=== PATIENT | female | born 1985 | race Caucasian/White ===

== ENCOUNTER 2016-04-16 15:06 | Emergency (ER) | payer OTHER ==
--- NOTE | 2016-04-16 15:33 | EDDOCDS ---
Physician Documentation [facility] Name: Irena Del Cid Age: 30 yrs Sex: Female : 1985 Arrival Date: 04/16/2016 Time: 15:06 Bed TR8 Private MD: Jose Roberto Steiner Disposition: 04/16/16 15:23 Discharged to Home/Self Care. Impression: Chalazion left lower eyelid. - Condition is Stable. - Discharge Instructions: Chalazion. - Prescriptions for Erythromycin 5 mg/gram (0.5 %) Ophthalmic Ointment - apply 1 centimeter by OPHTHALMIC route 2-3 times daily for 7 days; 1 tube. - Medication Reconciliation form. - Follow up: Audi Phillips; When: Call to arrange an appointment; Reason: Wound/Symptom Recheck, Recheck today's complaints, Continuance of care. - Problem is chronic. - Symptoms are unchanged. - Notes: Follow up with the eye doctor as discussed. Historical: - Allergies: no known allergies; - Home Meds: 1. none - PMHx: none; - PSHx: none; - Social history: Smoking status: Patient uses tobacco products, current some day smoker. No barriers to communication noted, The patient speaks fluent Ivorian, Speaks appropriately for age. - Family history: No immediate family members are acutely ill. - : The pt / caregiver states he / she is not on anticoagulants. Home medication list is obtained from the patient. - Exposure Risk Screening:: None identified. 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 7 in. (170.18 cm); Pain 5/10; 15:08 Body Mass Index 22.55 (65.32 kg, 170.18 cm) dem1 MDM: 15:31 Financial registration complete. lg Signatures: Ame Nieves, RN RN [facility] Mirlande Levin, Reg Reg lg Desmond Simpson, PA-C PA-C cc10 Brandon Rios RN RN mb9 MTDD
--- NOTE | 2016-04-16 15:33 | EDDOCDS ---
Nurse's Notes [facility] Name: Irena Del Cid Age: 30 yrs Sex: Female : 1985 Arrival Date: 04/16/2016 Time: 15:06 Bed TR8 Private MD: Jose Roberto Steiner Diagnosis: Chalazion left lower eyelid Presentation: 04/16 15:10 Presenting complaint: Patient states: left stye on lower lid for a month. last couple srm of days its gotten bigger. also a bump that she can feel when touches upper right eye lid. Mechanism of Injury: No Mechanism of Injury. The patient denies any loss of vision. Adult Sepsis Screening: The patient does not have new or worsening altered mentation. Patient's respiratory rate is less than 22. Systolic blood pressure is greater than 100. Patient has a qSOFA score of 0- Negative Sepsis Screen. Suicide/Homicide risk assessment- the patient denies having any suicidal and/or homicidal ideations and does not present with any other emotional, behavioral or mental health complaints. Status: Patient is not a emergency medical service coordinator or dependent. Transition of care: patient was not received from another setting of care. 15:10 Acuity: JESSA Level 4 srm 15:10 Method Of Arrival: Walkin/Carried/Asstd srm 15:12 Presenting complaint: Patient states: drainage from left eye last 2 days. srm Triage Assessment: 15:11 General: Appears in no apparent distress, Behavior is appropriate for age, cooperative. srm Pain: Pain currently is 5 out of 10 on a pain scale. HIV screening NA for this visit Offered previously. EENT: Reports drainage from eye in am for past 2 days. 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 none - PMHx: none; - PSHx: none; - Social history: Smoking status: Patient uses tobacco products, current some day smoker. No barriers to communication noted, The patient speaks fluent Tajik, Speaks appropriately for age. - Family history: No immediate family members are acutely ill. - : The pt / caregiver states he / she is not on anticoagulants. Home medication list is obtained from the patient. - Exposure Risk Screening:: None identified. Screenin:29 Screening information is obtained from the patient. Fall risk: No risks identified. mb9 Assistance ADL's: requires no assistance with activities of daily living. Abuse/DV Screen: The patient / caregiver reports he/she is: not in a situation that causes fear, pain or injury. Nutritional screening: No deficits noted. Advance Directives: There is no active DNR order. home support is adequate. Assessment: 15:29 General: Appears in no apparent distress, Behavior is appropriate for age, cooperative. mb9 EENT: Eyes Sclera/Cornea. Vital Signs: 15:08 BP 127 / 76; Pulse 101; Resp 18; Temp 97.4(O); Pulse Ox 98% on R/A; Weight 65.32 kg dem1 (M); Height 5 ft. 7 in. (170.18 cm); Pain 5/10; 15:08 Body Mass Index 22.55 (65.32 kg, 170.18 cm) [facility] Vitals: 15:08 Log In Time: April 16, 2016 at 15:05. [facility] ED Course: 15:08 Patient visited by Finesse Jean Baptiste. dem1 15:08 Jose Roberto Steiner is Private Physician. dem1 15:08 Patient moved to Waiting dem1 15:09 Patient moved to Pre RCE dem1 15:11 Triage Initiated srm 15:15 Patient moved to PD jb5 15:16 Desmond Simpson PA-C [facility] cc10 15:16 Oli Mukherjee MD is Attending Physician. cc10 15:16 Patient visited by Desmond Simpson PA-C. cc10 15:16 Patient visited by Desmond Simpson PA-C. cc10 15:23 Audi Phillips is Referral Physician. cc10 15:28 Patient moved to TR8 mb9 15:29 The patient / caregiver is instructed regarding the plan of care and ED course. mb9 15:29 No IV's were initiated during this patient's visit. No procedures done that require mb9 assistance. Order Results: There are currently no results for this order. Outcome: 15:23 Discharge ordered by Provider. cc10 15:29 Discharge Assessment: Patient awake, alert and oriented x 3. No cognitive and/or mb9 functional deficits noted. Patient verbalized understanding of disposition instructions. patient administered narcotics - no. The following High Risk Discharge criteria are identified: None. Discharged to home ambulatory. Condition: good. Discharge instructions given to patient, Instructed on discharge instructions, follow up and referral plans. medication usage, Demonstrated understanding of instructions, medications, Pt was receptive of discharge instructions/ teaching. Prescriptions given X 1. No special radiology studies were completed. Property :Personal belongings accompany Pt. 15:33 Patient left the ED. mb9 Signatures: Ame Nieves, RN RN [facility] Rayne Culp, JOESPH PILE DRIVING SUPERVISOR jb5 Finesse Jean Baptiste1 Desmond Simpson PA-C PA-C cc10 Brandon Rios RN RN mb9 MTDD
--- NOTE | 2016-04-18 16:33 | EDDOCDS ---
Physician Documentation [facility] Name: Irena Del Cid Age: 30 yrs Sex: Female : 1985 Arrival Date: 04/16/2016 Time: 15:06 Bed TR8 Private MD: Jose Roberto Steiner Disposition: 04/16/16 15:23 Discharged to Home/Self Care. Impression: Chalazion left lower eyelid. - Condition is Stable. - Discharge Instructions: Chalazion. - Prescriptions for Erythromycin 5 mg/gram (0.5 %) Ophthalmic Ointment - apply 1 centimeter by OPHTHALMIC route 2-3 times daily for 7 days; 1 tube. - Medication Reconciliation form. - Follow up: Audi Phillips; When: Call to arrange an appointment; Reason: Wound/Symptom Recheck, Recheck today's complaints, Continuance of care. - Problem is chronic. - Symptoms are unchanged. - Notes: Follow up with the eye doctor as discussed. Historical: - Allergies: no known allergies; - Home Meds: 1. none - PMHx: none; - PSHx: none; - Social history: Smoking status: Patient uses tobacco products, current some day smoker. No barriers to communication noted, The patient speaks fluent [place] Of [place], Speaks appropriately for age. - Family history: No immediate family members are acutely ill. - : The pt / caregiver states he / she is not on anticoagulants. Home medication list is obtained from the patient. - Exposure Risk Screening:: None identified. 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 7 in. (170.18 cm); Pain 5/10; 15:08 Body Mass Index 22.55 (65.32 kg, 170.18 cm) dem1 MDM: 15:31 Financial registration complete. lg 18:06 T-Sheet-- Draft Copy was scanned into [employer] and attached to record. r 04/17 08:09 [facility] Payment Agreement was scanned into [employer] and attached to record. Signatures: Ame Nieves Mirlande Zaldivar RN, Reg Reg lg Desmond Simpson, PA-C PA-C cc10 Brandon Rios RN RN mb9 Halima Raza eduardo The chart was reviewed and I authenticate all verbal orders and agree with the evaluation and treatment provided.Attachments: 04/16 18:06 T-Sheet-- Draft Copy klr 04/17 08:09 [facility] Payment Agreement lg Chart Complete MTDD
--- NOTE | 2016-04-18 16:33 | EDDOCDS ---
Nurse's Notes [facility] Name: Irena Del Cid Age: 30 yrs Sex: Female : 1985 Arrival Date: 04/16/2016 Time: 15:06 Bed TR8 Private MD: Jose Roberto Steiner Diagnosis: Chalazion left lower eyelid Presentation: 04/16 15:10 Presenting complaint: Patient states: left stye on lower lid for a month. last couple srm of days its gotten bigger. also a bump that she can feel when touches upper right eye lid. Mechanism of Injury: No Mechanism of Injury. The patient denies any loss of vision. Adult Sepsis Screening: The patient does not have new or worsening altered mentation. Patient's respiratory rate is less than 22. Systolic blood pressure is greater than 100. Patient has a qSOFA score of 0- Negative Sepsis Screen. Suicide/Homicide risk assessment- the patient denies having any suicidal and/or homicidal ideations and does not present with any other emotional, behavioral or mental health complaints. 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 Transition of care: patient was not received from another setting of care. 15:10 Acuity: JESSA Level 4 srm 15:10 Method Of Arrival: Walkin/Carried/Asstd srm 15:12 Presenting complaint: Patient states: drainage from left eye last 2 days. srm Triage Assessment: 15:11 General: Appears in no apparent distress, Behavior is appropriate for age, cooperative. srm Pain: Pain currently is 5 out of 10 on a pain scale. HIV screening NA for this visit Offered previously. EENT: Reports drainage from eye in am for past 2 days. 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 none - PMHx: none; - PSHx: none; - Social history: Smoking status: Patient uses tobacco products, current some day smoker. No barriers to communication noted, The patient speaks fluent Tajik, Speaks appropriately for age. - Family history: No immediate family members are acutely ill. - : The pt / caregiver states he / she is not on anticoagulants. Home medication list is obtained from the patient. - Exposure Risk Screening:: None identified. Screenin:29 Screening information is obtained from the patient. Fall risk: No risks identified. mb9 Assistance ADL's: requires no assistance with activities of daily living. Abuse/DV Screen: The patient / caregiver reports he/she is: not in a situation that causes fear, pain or injury. Nutritional screening: No deficits noted. Advance Directives: There is no active DNR order. home support is adequate. Assessment: 15:29 General: Appears in no apparent distress, Behavior is appropriate for age, cooperative. mb9 EENT: Eyes Sclera/Cornea. Vital Signs: 15:08 BP 127 / 76; Pulse 101; Resp 18; Temp 97.4(O); Pulse Ox 98% on R/A; Weight 65.32 kg dem1 (M); Height 5 ft. 7 in. (170.18 cm); Pain 5/10; 15:08 Body Mass Index 22.55 (65.32 kg, 170.18 cm) [facility] Vitals: 15:08 Log In Time: April 16, 2016 at 15:05. [facility] ED Course: 15:08 Patient visited by Finesse Jean Baptiste. dem1 15:08 Jose Roberto Steiner is Private Physician. dem1 15:08 Patient moved to Waiting dem1 15:09 Patient moved to Pre RCE dem1 15:11 Triage Initiated srm 15:15 Patient moved to PD jb5 15:16 Desmond Simpson [facility]C [facility] cc10 15:16 Oli Mukherjee MD is Attending Physician. cc10 15:16 Patient visited by Desmond Simpson PA-C. cc10 15:16 Patient visited by Desmond Simpson PA-C. cc10 15:23 Audi Phillips is Referral Physician. cc10 15:28 Patient moved to TR8 mb9 15:29 The patient / caregiver is instructed regarding the plan of care and ED course. mb9 15:29 No IV's were initiated during this patient's visit. No procedures done that require mb9 assistance. 18:06 T-Sheet-- Draft Copy was scanned into [employer] and attached to record. klr 04/17 08:09 [facility] Payment Agreement was scanned into [employer] and attached to record. lg Order Results: There are currently no results for this order. Outcome: 04/16 15:23 Discharge ordered by Provider. cc10 15:29 Discharge Assessment: Patient awake, alert and oriented x 3. No cognitive and/or mb9 functional deficits noted. Patient verbalized understanding of disposition instructions. patient administered narcotics - no. The following High Risk Discharge criteria are identified: None. Discharged to home ambulatory. Condition: good. Discharge instructions given to patient, Instructed on discharge instructions, follow up and referral plans. medication usage, Demonstrated understanding of instructions, medications, Pt was receptive of discharge instructions/ teaching. Prescriptions given X 1. No special radiology studies were completed. Property :Personal belongings accompany Pt. 15:33 Patient left the ED. mb9 Signatures: Ame Nieves, RN RN srm Mirlande Levin, Reg Reg lg Rayne Culp, STRATEGIC PARTNER DEVELOPMENT MANAGER STRATEGIC PARTNER DEVELOPMENT MANAGER jb5 Finesse Jean Baptiste1 Desmond Simpson, PA-C PA-C cc10 Brandon RiosRN RN mb9 Halima Raza Chart Complete MICHAEL
--- NOTE | 2016-04-18 16:33 | EDDOCDS ---
Physician Documentation [facility] Name: Irena Del Cid Age: 30 yrs Sex: Female : 1985 Arrival Date: 04/16/2016 Time: 15:06 Bed TR8 Private MD: Jose Roberto Steiner Disposition: 04/16/16 15:23 Discharged to Home/Self Care. Impression: Chalazion left lower eyelid. - Condition is Stable. - Discharge Instructions: Chalazion. - Prescriptions for Erythromycin 5 mg/gram (0.5 %) Ophthalmic Ointment - apply 1 centimeter by OPHTHALMIC route 2-3 times daily for 7 days; 1 tube. - Medication Reconciliation form. - Follow up: Audi Phillips; When: Call to arrange an appointment; Reason: Wound/Symptom Recheck, Recheck today's complaints, Continuance of care. - Problem is chronic. - Symptoms are unchanged. - Notes: Follow up with the eye doctor as discussed. Historical: - Allergies: no known allergies; - Home Meds: 1. none - PMHx: none; - PSHx: none; - Social history: Smoking status: Patient uses tobacco products, current some day smoker. No barriers to communication noted, The patient speaks fluent Armenian, Speaks appropriately for age. - Family history: No immediate family members are acutely ill. - : The pt / caregiver states he / she is not on anticoagulants. Home medication list is obtained from the patient. - Exposure Risk Screening:: None identified. 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 7 in. (170.18 cm); Pain 5/10; 15:08 Body Mass Index 22.55 (65.32 kg, 170.18 cm) dem1 MDM: 15:31 Financial registration complete. lg 18:06 T-Sheet-- Draft Copy was scanned into [employer] and attached to record. r 04/17 08:09 [facility] Payment Agreement was scanned into [employer] and attached to record. Signatures: Ame Nieves Mirlande Zaldivar RN, Reg Reg lg Desmond Simpson, PA-C PA-C cc10 Brandon Rios RN RN mb9 Halima Raza eduardo The chart was reviewed and I authenticate all verbal orders and agree with the evaluation and treatment provided.Attachments: 04/16 18:06 T-Sheet-- Draft Copy klr 04/17 08:09 [facility] Payment Agreement lg Chart Complete MTDD
== END 2016-04-16 15:33 | disposition home or self-care (01) ==
LOC: M ED 15:06
DX: H00.15 Chalazion left lower eyelid (principal); F17.210 Nicotine dependence, cigarettes, uncomplicated

== ENCOUNTER → 2018-10-02 | Outpatient (REF) | payer OTHER | LOC: M LAB REF 08:18 | PROVIDERS: ATTEND Nurse Practitioner Family | DX: R10.9 Unspecified abdominal pain (principal) ==

== ENCOUNTER → 2018-10-24 | Outpatient (CLI) | payer OTHER ==
[2018-10-24 14:36] LABS: BASO % 0.4 % (0.0-1.0); EOS # 0.1 10^3/uL (0.0-0.5); EOS % 1.3 % (0.0-3.0); HEMATOCRIT 39.6 % (36.0-47.0); HEMOGLOBIN 13.1 g/dl (12.0-15.5); LYMPH # 2.6 10^3/uL (1.5-5.0); LYMPH % 31.4 % (24.0-44.0); MEAN CORPUSCULAR HEMOGLOBIN 30.9 pg (27.0-33.0); MEAN CORPUSCULAR HGB CONC 33.1 g/dl (32.0-36.5); MEAN CORPUSCULAR VOLUME 93.4 fl (80.0-96.0); MONO # 0.8 10^3/uL (0.0-0.8); MONO % 9.5 % (0.0-5.0); NEUTROPHILS # 4.8 10^3/uL (1.5-8.5); PLATELET COUNT, AUTOMATED 197 10^3/uL (150-450); RED BLOOD COUNT 4.24 10^6/uL (4.00-5.40); WHITE BLOOD COUNT 8.4 10^3/uL (4.0-10.0)
[2018-10-24 15:05] LABS: ALBUMIN 3.6 GM/DL (3.2-5.2); ALT/SGPT 169 U/L (12-78); BILIRUBIN,TOTAL 0.5 MG/DL (0.2-1.0); BLOOD UREA NITROGEN 13 MG/DL (7-18); CALCIUM LEVEL 8.5 MG/DL (8.5-10.1); CARBON DIOXIDE LEVEL 27 MEQ/L (21-32); CHLORIDE LEVEL 108 MEQ/L (98-107); CHOLESTEROL LEVEL 183 MG/DL (<200); CHOLESTEROL RISK RATIO 3.452 (<5); FREE T4 0.94 NG/DL (0.76-1.46); GLOMERULAR FILTRATION RATE > 60.0 (>60); GLUCOSE, FASTING 89 MG/DL (70-100); HDL CHOLESTEROL 53 MG/DL (>40); LDL CHOLESTEROL 111 MG/DL (<100); NON-HDL-C 130 MG/DL; POTASSIUM SERUM 4.5 MEQ/L (3.5-5.1); SODIUM LEVEL 139 MEQ/L (136-145); TOTAL PROTEIN 7.3 GM/DL (6.4-8.2); TRIGLYCERIDES LEVEL 96 MG/DL (<150)
[2018-10-24 15:07] LABS: TOTAL 25(OH) VITAMIN D 24.9 NG/ML (30.0-100.0)
[2018-10-24 15:18] LABS: HEMOGLOBIN A1c 5.6 %
== END ==
LOC: M LAB 13:46
PROVIDERS: ATTEND Family Medicine
DX: Z00.00 Encounter for general adult medical examination without abnormal findings (principal); Z11.3 Encounter for screening for infections with a predominantly sexual mode of transmission

== ENCOUNTER → 2024-04-14 | Outpatient (CLI) | payer OTHER ==
[2024-04-14 09:51] LABS: APPEARANCE, URINE CLEAR (CLEAR); BACTERIA, URINE AUTO NEGATIVE (NEGATIVE); BILIRUBIN, URINE AUTO NEGATIVE (NEGATIVE); BLOOD, URINE BLOOD NEGATIVE (NEGATIVE); COLOR, URINE STRAW (YELLOW); GLUCOSE, URINE (UA) AUTO NEGATIVE (NEGATIVE); KETONE, URINE AUTO NEGATIVE (NEGATIVE); LEUKOCYTE ESTERASE, URINE AUTO NEGATIVE (NEGATIVE); NITRITE, URINE AUTO NEGATIVE (NEGATIVE); PROTEIN, URINE AUTO NEGATIVE (NEGATIVE); RBC, URINE AUTO 0 /HPF (0-3); SPECIFIC GRAVITY URINE AUTO 1.004 (1.002-1.035); SQUAMOUS EPITHELIAL CELL UR AU 1 /HPF (0-6); UROBILINOGEN, URINE AUTO 0.2 mg/dL (0.0-2.0); WBC, URINE AUTO 0 /HPF (0-3)
[2024-04-14 09:53] LABS: HEMATOCRIT 37.6 % (36.0-47.0); HEMOGLOBIN 12.3 g/dl (12.0-15.5); MEAN CORPUSCULAR HEMOGLOBIN 29.7 pg (27.0-33.0); MEAN CORPUSCULAR HGB CONC 32.7 g/dl (32.0-36.5); MEAN CORPUSCULAR VOLUME 90.8 fl (80.0-96.0); PLATELET COUNT, AUTOMATED 234 10^3/uL (150-450); RED BLOOD COUNT 4.14 10^6/uL (4.00-5.40); WHITE BLOOD COUNT 5.5 10^3/uL (4.0-10.0)
[2024-04-14 10:12] LABS: HEMOGLOBIN A1c 5.2 % (4.0-6.0)
[2024-04-14 10:19] LABS: ALBUMIN 3.7 G/DL (3.2-5.2); ALKALINE PHOSPHATASE 33 U/L (35-104); ALT/SGPT 18 U/L (7.0-40); AST/SGOT 9 U/L (<34); BILIRUBIN,TOTAL 0.6 MG/DL (0.3-1.2); BLOOD UREA NITROGEN 10 MG/DL (9-23); CALCIUM LEVEL 9.1 MG/DL (8.5-10.1); CARBON DIOXIDE LEVEL 24 MMOL/L (20-31); CHLORIDE LEVEL 108 MMOL/L (98-107); CHOLESTEROL LEVEL 197 MG/DL (<200); CHOLESTEROL RISK RATIO 2.69 (<5); CREATININE FOR GFR 0.78 MG/DL (0.55-1.30); GLOMERULAR FILTRATION RATE > 60.0 (>60); GLUCOSE, FASTING 95 MG/DL (60-100); HDL CHOLESTEROL 73.1 MG/DL (>40); LDL CHOLESTEROL 112.9 MG/DL (<100); NON-HDL-C 123.9 MG/DL; POTASSIUM SERUM 4.7 MMOL/L (3.5-5.1); SODIUM LEVEL 139 MMOL/L (136-145); TOTAL PROTEIN 6.7 G/DL (5.7-8.2); TRIGLYCERIDES LEVEL 55 MG/DL (<150)
[2024-04-14 10:20] LABS: THYROID STIMULATING HORMONE 1.313 uIU/ML (0.55-4.78)
[2024-04-14 10:21] LABS: FREE T4 1.07 NG/DL (0.89-1.76)
== END ==
LOC: M LAB 08:53
PROVIDERS: ATTEND Physician Assistant
DX: F41.9 Anxiety disorder, unspecified (principal); R07.89 Other chest pain